=== PATIENT | male | born 1990 | race Caucasian/White ===

== ENCOUNTER 2020-09-20 18:42 | Emergency (ER) | payer OTHER, SELFPAY ==
[~2020-09-20] VITALS: Ht 162.6 cm; Wt 112.0 kg
[2020-09-20] MEDS ORDERED: IBUP200C25 PO (19:14)
[2020-09-20] MEDS ORDERED: NAPROXEN 250 MG TAB PO ONE (20:00)
[2020-09-20] MEDS ORDERED: methocarbamoL 750 MG TAB PO ONE (20:00)
[2020-09-20] MEDS ORDERED: METOCLOPRAMIDE 10 MG TAB PO ONE (20:00)
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
[2020-09-20] MEDS ORDERED: ROBA750T4 PO (21:56)
[2020-09-20] MEDS ORDERED: NAPR-837 PO (21:56)
[2020-09-20 21:58] VITALS: BP 124/80
== END 2020-09-20 22:08 | disposition home or self-care (01) ==
LOC: M ED 18:42
DX: S06.0X0A Concussion without loss of consciousness, initial encounter (principal); S39.012A Strain of muscle, fascia and tendon of lower back, initial encounter; R51.9 Headache, unspecified; V43.52XA Car driver injured in collision with other type car in traffic accident, initial encounter

== ENCOUNTER → 2020-10-23 | Outpatient (CLI) | payer SELFPAY ==
[~2020-10-23] MED LIST: IBUP200C25 PO; NAPR-837 PO; ROBA750T4 PO
== END ==
LOC: M LABSMTC 13:07
PROVIDERS: ATTEND Pediatrics
DX: Z20.822 Contact with and (suspected) exposure to COVID-19 (principal)

== ENCOUNTER 2022-06-12 09:08 | Emergency (ER) | payer BC, SELFPAY ==
[~2022-06-12] VITALS: Ht 165.1 cm; Wt 102.4 kg
[2022-06-12 11:58] VITALS: BP 132/83
[2022-06-12] MEDS ORDERED: ONDANSETRON 4MG ORAL DISINTEGRATING TAB PO ONE (12:05)
[2022-06-12] MEDS ORDERED: ACETAMINOPHEN 500 MG TAB PO ONE (12:05)
== END 2022-06-12 12:19 | disposition home or self-care (01) ==
LOC: M ED 09:08
DX: S09.90XA Unspecified injury of head, initial encounter (principal); W22.8XXA Striking against or struck by other objects, initial encounter; Y99.0 Civilian activity done for income or pay; J45.909 Unspecified asthma, uncomplicated; F17.200 Nicotine dependence, unspecified, uncomplicated

== ENCOUNTER 2022-08-23 19:28 | Emergency (ER) | payer BC | END 2022-08-23 19:45 | disposition left against medical advice (07) | LOC: M ED 19:28 → EDBD 19:28 → M ED 19:45 | DX: Z53.21 Procedure and treatment not carried out due to patient leaving prior to being seen by health care provider (principal) ==

== ENCOUNTER 2022-11-29 14:13 | Emergency (ER) | payer BC ==
[~2022-11-29] VITALS: Ht 165.1 cm; Wt 112.2 kg
[2022-11-29 14:13] VITALS: BP 137/94
[2022-11-29] MEDS ORDERED: CEPH500C PO (16:40)
== END 2022-11-29 17:05 | disposition home or self-care (01) ==
LOC: M ED 14:13
DX: L02.01 Cutaneous abscess of face (principal); Z79.2 Long term (current) use of antibiotics